=== PATIENT | female | born 1995 | race Caucasian/White ===

== ENCOUNTER 2016-08-03 12:45 | Inpatient (IN) | payer SELFPAY ==
[~2016-08-03] VITALS: Ht 167.6 cm; Wt 81.4 kg
--- NOTE | ~2016-08-03 | OR ---
PATIENT'S NAME: TETE WARD [facility] AGE: 21 Y [address] ROOM: [place] [address] LOCATION: [facility] ADMIT DATE: 08/03/2016 OR/Procedure Report DISCHARGE DATE: FAMILY PHYSICIAN: Denton Feldman MD ATTENDING PHYSICIAN: RAMBO GUIDRY SURGEON: Rambo Guidry MD TRANSPORTATION DIRECTOR: DATE OF PROCEDURE: 08/03/2016 PREOPERATIVE DIAGNOSES: 1. Spontaneous rupture of membranes. 2. Active labor. 3. Intrauterine at 40 weeks and 0 days. POSTOPERATIVE DIAGNOSES: 1. Spontaneous rupture of membranes. 2. Active labor. 3. Intrauterine at 40 weeks and 0 days. PROCEDURE PERFORMED: Spontaneous vaginal delivery over intact perineum. ANESTHESIA: Epidural. FINDINGS: Viable female infant with Apgars of 8 and 9 and weight of 8 pounds and 2 ounces. Placenta intact with 3-vessel cord. Bilateral labial and periurethral lacerations as well as tear in the hymen. ESTIMATED BLOOD LOSS: 300 mL. COMPLICATIONS: None. INDICATIONS: The patient is a 21-year-old G1 with intrauterine at 40 weeks and 0 days, who presented to the clinic today, complaining of rupture of membranes. She was found to be grossly ruptured. She was 5, 90, and -1. She was subsequently sent to Labor and Delivery. The patient progressed to labor. She did get an epidural. She progressed to complete and started maternal expulsive efforts. GBS was negative, therefore, prophylaxis was not needed. DESCRIPTION OF PROCEDURE: The patient was placed in dorsal lithotomy. She was prepped and draped in the usual fashion. head was delivered in the MARCOS position over intact perineum followed by the anterior shoulder and the remainder of the fetus. The was placed on the mother's abdomen. Cord was clamped and cut. Cord blood was obtained. The placenta then delivered spontaneously intact. Three-vessel cord was noted. A tear in the hymen was PATIENT'S NAME: TETE WARD [facility] AGE: 21 Y [address] ROOM: [place] [address] LOCATION: [facility] ADMIT DATE: 08/03/2016 OR/Procedure Report DISCHARGE DATE: FAMILY PHYSICIAN: Denton Feldman MD ATTENDING PHYSICIAN: RAMBO GUIDRY noted and was repaired with interrupted 3-0 Vicryl. Right labial and periurethral laceration was noted and repaired with interrupted 3-0 Vicryl. Left labial and periurethral laceration was also noted, it was repaired with 3- 0 and 4-0 Vicryl interrupted stitches. Hemostasis was noted. Instruments, sponge, and needle counts were correct at the conclusion of the case. DISPOSITION: Mother stable. Baby in room with mother. MD ISABEL WARNER/christopher /[id number] d: 08/04/16 0118 t: 08/06/16 1705, OPERATIVE SUMMARY
[~2016-08-03 12:45] MED LIST: PRENATAL 1+1)(P1 TAB PO
[2016-08-03 15:39] LABS: BASOPHIL % 0.1 %; EOSINOPHIL % 0.1 %; HEMATOCRIT 33.6 % (33.0-46.0); HEMOGLOBIN 11.2 g/dL (11.0-15.0); IMMATURE GRANULOCYTE # 0.1 K/uL (0.0-0.3); IMMATURE GRANULOCYTE % 0.6 %; LYMPHOCYTE # 1.2 K/uL (0.8-4.0); LYMPHOCYTE % 8.6 %; MCH 30.3 pg (27.0-34.0); MCHC 33.3 gm/dL (32.0-36.5); MCV 90.8 fl (83.0-98.0); MONOCYTE % 6.9 %; MPV 9.1 fl (9.4-12.4); NEUTROPHIL # (ANC) 12.2 K/uL (1.8-7.8); NEUTROPHIL % 83.7 %; NRBC % 0 /100WBC (0-0.00); PLATELET COUNT 215 K/uL (150-450); RDW-CV 13.8 % (11.9-14.6); WBC 14.5 K/uL (4.0-11.0)
[2016-08-03] MEDS ORDERED: OSCAL500 MG PO (17:10)
[2016-08-04 04:20] LABS: BASOPHIL % 0.2 %; EOSINOPHIL % 0.2 %; HEMATOCRIT 27.5 % (33.0-46.0); HEMOGLOBIN 9.1 g/dL (11.0-15.0); IMMATURE GRANULOCYTE # 0.1 K/uL (0.0-0.3); IMMATURE GRANULOCYTE % 0.5 %; LYMPHOCYTE # 1.8 K/uL (0.8-4.0); LYMPHOCYTE % 14.7 %; MCH 29.9 pg (27.0-34.0); MCHC 33.1 gm/dL (32.0-36.5); MCV 90.5 fl (83.0-98.0); MONOCYTE # 1.2 K/uL (0.0-1.0); MONOCYTE % 9.7 %; MPV 8.8 fl (9.4-12.4); NEUTROPHIL # (ANC) 9.4 K/uL (1.8-7.8); NEUTROPHIL % 74.7 %; NRBC % 0 /100WBC (0-0.00); PLATELET COUNT 180 K/uL (150-450); RBC 3.04 M/uL (3.50-5.00); RDW-CV 13.7 % (11.9-14.6); WBC 12.5 K/uL (4.0-11.0)
--- NOTE | 2016-08-04 15:29 | NUR ---
Met with patient and at bedside today. Introduced myself and explained the role of the CM department. The family does have medical insurance, but it is a Co-Op plan which means they need to pay for the hospital bill themselves and then they will submit the bills to their insurance and be reimbursed directly from the company. Mom and dad have all necessary baby items. They have no discharge concerns at this time. Family should discharge to home over the weekend with no additional needs.
--- NOTE | 2016-08-04 17:34 | NUR ---
08/04/2016 1800: Vss. Ruano'ed. Needs MMR. MMR is ordered.
[2016-08-05] MEDS ORDERED: DERMOPLAST SPRA56 GM TOP (11:22)
[2016-08-05] MEDS ORDERED: MOTRIN800 MG PO (11:24)
[2016-08-05] MEDS ORDERED: FEOSOL325 MG PO (11:24)
== END 2016-08-05 14:00 | disposition disaster alternative care site (69) | DRG 989 ==
LOC: GOBM 12:45 → EDSTATUS 14:27 → GOBS 14:40 → GOBM 16:06 → GOBS 08-05 14:00
PROVIDERS: ADMIT Obstetrics & Gynecology
DX: O70.0 First degree perineal laceration during delivery (principal); Z37.0 Single live birth; O71.82 Other specified trauma to perineum and vulva; Z3A.40 40 weeks gestation of pregnancy
CPT/HCPCS: J2590; J3010; J7120